=== PATIENT | male | born 1990 | race Two or more races ===

== ENCOUNTER 2018-09-15 21:51 | Emergency (ER) | payer OTHER ==
[~2018-09-15] VITALS: Ht 170.2 cm; Wt 81.6 kg
[2018-09-15] MEDS ORDERED: PENICILLIN G BENZATHINE LA 1.2 MU TBX IM STA (22:25)
[2018-09-15] MEDS ORDERED: DEXAMETHASONE SOD PHOS 10 MG/1 ML VIAL IV ONE (22:30)
[2018-09-15] MEDS ORDERED: TRAMADOL HCL 50 MG TAB PO ONE (23:45)
== END 2018-09-15 23:40 | disposition home or self-care (01) ==
LOC: FSED 21:51
DX: R50.9 Fever, unspecified (principal); J11.1 Influenza due to unidentified influenza virus with other respiratory manifestations; B34.9 Viral infection, unspecified
CPT/HCPCS: 87400; 99283